=== PATIENT | female | born 1995 | race Two or more races ===

== ENCOUNTER 2025-02-25 08:15 | Inpatient (IN) | payer OTHER ==
[~2025-02-25] VITALS: Ht 182.9 cm; Wt 47.6 kg
[2025-02-25 09:42] LABS: PH,URINE 6.5 (5.0-8.0); URINE APPEARANCE Clear; URINE BILIRRUBIN Negative (NEGATIVE); URINE BLOOD Trace; URINE COLOR Yellow; URINE GLUCOSE Negative (NEGATIVE); URINE KETONE Negative (NEGATIVE); URINE LEUKOCYTE Negative; URINE NITRATE Negative; URINE PROTEIN Negative (NEGATIVE); URINE UROBILINOGEN 0.2 E.U./dl
[2025-02-25 09:44] LABS: URINE BACTERIA 52.6 uL (0.0-1933); URINE EPITHELIAL CELLS 5.8 uL (0.0-38.8); URINE RBC 3.2 uL (0.0-20.8); URINE WBC 4.4 uL (0.0-23.2)
[2025-02-25 09:54] LABS: BASO % 0.4 % (0.1-1.2); EOS # 0.28 (0.04-0.54); EOS % 3.8 % (0.7-7.0); HEMOGLOBIN 11.2 g/dL (11.2-15.7); LYMPH % 27.4 % (19.3-53.1); MONO % 5.5 % (4.7-12.5); NEUT # 4.56 (1.56-6.13); NEUT % 62.5 % (34.0-71.1); PLATELET COUNT 453 K/uL (163-369); RED BLOOD COUNT 4.15 M/uL (3.93-5.22); RED CELL DISTRIBUTION WIDTH 12.7 % (11.6-14.4)
[2025-02-25 10:13] LABS: INR 1.04; PARTIAL THROMBOPLASTIN TIME 26.9 SECONDS (22.0-34.0); PROTHROMBIN TIME 11.3 SECONDS (9.0-11.5)
[2025-02-25 11:28] LABS: ALBUMIN 3.4 gm/dL (3.4-5.0); BILIRUBIN TOTAL 0.37 mg/dL (0.3-1.2); CALCIUM 9.4 mg/dL (8.5-10.1); CREATININE SERUM 0.71 mg/dL (0.55-1.02); GFR 98.02; GLOBULINA 3.7 G/DL (2.4-3.5); POTASSIUM 5.11 mEq/L (3.5-5.1); TOTAL PROTEIN 7.1 gm/dL (6.4-8.2)
[2025-03-03] MEDS ORDERED: CEFAZOLIN SODIUM 1,000 MG VIAL ONE ×2 (08:19→18:22)
[2025-03-03] MEDS ORDERED: ENOXAPARIN SODIUM 40 MG/0.4 ML SYRINGE SUBCUTANEO SCH (15:39)
[2025-03-03] MEDS ORDERED: PROPOFOL 10,000 MCG/ML VIAL IV ONE (16:55)
[2025-03-03] MEDS ORDERED: MORPHINE SULFATE 4 MG/ML CARTRIDGE IV SCH (17:00)
[2025-03-03] MEDS ORDERED: PROPOFOL 10,000 MCG/ML VIAL IV SCH (17:00)
[2025-03-03] MEDS ORDERED: PIPERACILLIN/TAZOBACTAM SODIUM 4.5 GM VIAL IV SCH (18:00)
[2025-03-03] MEDS ORDERED: CEFAZOLIN SODIUM 1,000 MG VIAL IV SCH (18:00)
[2025-03-03 18:31] LABS: BASO % 0.1 % (0.1-1.2); EOS # 0.02 (0.04-0.54); EOS % 0.1 % (0.7-7.0); HEMATOCRIT 36.5 % (34.1-44.9); HEMOGLOBIN 11.8 g/dL (11.2-15.7); LYMPH # 0.76 (1.18-3.74); LYMPH % 4.4 % (19.3-53.1); MEAN CORPUSCULAR HEMOGLOBIN 27.1 pg (25.6-32.2); MONO # 0.48 (0.24-0.82); MONO % 2.8 % (4.7-12.5); NEUT # 15.77 (1.56-6.13); NEUT % 92.4 % (34.0-71.1); PLATELET COUNT 412 K/uL (163-369); RED BLOOD COUNT 4.35 M/uL (3.93-5.22); RED CELL DISTRIBUTION WIDTH 12.6 % (11.6-14.4)
[2025-03-03 18:57] LABS: ALBUMIN 3.1 gm/dL (3.4-5.0); BILIRUBIN TOTAL 0.63 mg/dL (0.3-1.2); CALCIUM 8.9 mg/dL (8.5-10.1); CREATININE SERUM 0.84 mg/dL (0.55-1.02); GLOBULINA 3.1 G/DL (2.4-3.5); POTASSIUM 4.63 mEq/L (3.5-5.1); TOTAL PROTEIN 6.2 gm/dL (6.4-8.2)
[2025-03-03 18:58] LABS: GFR 80.7
[2025-03-03] MEDS ORDERED: MORPHINE SULFATE 4 MG/ML VIAL IV ONE (19:05)
[2025-03-03] MEDS ORDERED: ENOXAPARIN SODIUM 40 MG/0.4 ML SYRINGE SUBCUTANEO ONE (20:15)
[2025-03-04] MEDS ORDERED: PIPERACILLIN/TAZOBACTAM SODIUM 3.375 GM VIAL IV ONE (02:42)
[2025-03-04 06:15] LABS: ABG PO2 316.8 mmHg (80-100); ABG pCO2 34.2 mmHg (35-45); BASE EXCESS 1.9 mmol/l; BICARBONATE 24.9 mmol/l (23-25); SaO2 99.9 %; Tco2 25.9 mmol/l; allen test SATISFACTORY; mode MECHANI VENTILATOR; o2 100 %; puncture site RADIAL RIGHT
[2025-03-04] MEDS ORDERED: PROPOFOL 10,000 MCG/ML VIAL IV ONE ×3 (12:57→23:07)
[2025-03-04] MEDS ORDERED: SODIUM CHLORIDE FOR INHALATION 1 VIAL.NEB IH SCH (18:34)
[2025-03-04] MEDS ORDERED: IPRATROPIUM BROMIDE 0.5 MG/2.5 ML AMPUL.NEB IH SCH (21:00)
[2025-03-05] VITALS (8 sets, daily range): BP systolic 100–129; BP diastolic 59–92; O2SAT 100
[2025-03-05] MEDS ORDERED: LEVALBUTEROL HCL 1.25 MG/3 ML SOLUTION IH SCH (01:00)
[2025-03-05 06:20] LABS: BASO % 0.6 % (0.1-1.2); EOS # 0.23 (0.04-0.54); EOS % 2.2 % (0.7-7.0); HEMATOCRIT 30.3 % (34.1-44.9); HEMOGLOBIN 9.7 g/dL (11.2-15.7); LYMPH # 1.74 (1.18-3.74); LYMPH % 16.7 % (19.3-53.1); MEAN CORPUSCULAR HEMOGLOBIN 26.6 pg (25.6-32.2); MONO # 0.58 (0.24-0.82); MONO % 5.6 % (4.7-12.5); NEUT # 7.79 (1.56-6.13); NEUT % 74.6 % (34.0-71.1); PLATELET COUNT 346 K/uL (163-369); RED BLOOD COUNT 3.65 M/uL (3.93-5.22); RED CELL DISTRIBUTION WIDTH 13.1 % (11.6-14.4)
[2025-03-05 06:41] LABS: ALBUMIN 2.7 gm/dL (3.4-5.0); BILIRUBIN TOTAL 0.54 mg/dL (0.3-1.2); CREATININE SERUM 0.99 mg/dL (0.55-1.02); GFR 66.79; GLOBULINA 2.9 G/DL (2.4-3.5); POTASSIUM 3.78 mEq/L (3.5-5.1); TOTAL PROTEIN 5.6 gm/dL (6.4-8.2)
[2025-03-05 06:53] LABS: ABG PH 7.477 (7.35-7.45); ABG PO2 187.7 mmHg (80-100); ABG pCO2 30.2 mmHg (35-45); BASE EXCESS -0.6 mmol/l; BICARBONATE 21.8 mmol/l (23-25); SaO2 99.7 %; Tco2 22.7 mmol/l
[2025-03-05 06:55] LABS: allen test NO SATISFACTORY; mode MECHANI VENTILATOR; puncture site RADIAL RIGHT
[2025-03-05 06:56] LABS: o2 40 %
[2025-03-05] MEDS ORDERED: ONDANSETRON HCL 2 MG/ML VIAL IV PRN (11:00)
[2025-03-05 11:51] LABS: ABG PH 7.484 (7.35-7.45); ABG PO2 197.5 mmHg (80-100); BASE EXCESS -0.8 mmol/l; BICARBONATE 21.3 mmol/l (23-25); SaO2 99.7 %; Tco2 22.2 mmol/l
[2025-03-05 12:46] LABS: allen test SATISFACTORY; mode MECHANI VENTILATOR; puncture site RADIAL RIGHT
[2025-03-05 12:47] LABS: o2 40 %
[2025-03-06] MEDS ORDERED: KETOROLAC TROMETHAMINE 30 MG VIAL IV PRN (02:45)
[2025-03-06 04:00] VITALS: BP 118/72; O2SAT 100
[2025-03-06 07:11] VITALS: BP 100/56; O2SAT 100
[2025-03-06 12:00] VITALS: BP 116/73; O2SAT 100
[2025-03-06 16:02] VITALS: BP 104/62; O2SAT 100
[2025-03-06] MEDS ORDERED: FAMOTIDINE/PF 20 MG/2 ML VIAL IV SCH (21:00)
[2025-03-06 21:24] VITALS: BP 120/66; O2SAT 100
[2025-03-06 23:11] VITALS: BP 106/61; O2SAT 99
[2025-03-07] MEDS ORDERED: GUAIFENESIN/DEXTROMETHORPHAN 100MG/10ML BLIST.PACK PO ONE (03:15)
[2025-03-07] MEDS ORDERED: GUAIFENESIN 200 MG/10 ML BLIST.PACK PO ONE (03:15)
[2025-03-07 04:00] VITALS: BP 102/67; O2SAT 96
[2025-03-07 07:00] VITALS: BP 122/65; O2SAT 99
[2025-03-07] MEDS ORDERED: IPRATROPIUM BROMIDE 0.5 MG/2.5 ML AMPUL.NEB IH SCH (09:00)
[2025-03-07] MEDS ORDERED: GUAIFENESIN 200 MG/10 ML BLIST.PACK PO SCH (09:00)
[2025-03-07 12:00] VITALS: BP 119/71; O2SAT 100
[2025-03-07 15:36] VITALS: BP 124/63; O2SAT 100
[2025-03-07 17:50] VITALS: BP 121/74; O2SAT 100
== END 2025-03-07 18:15 | disposition home or self-care (01) | DRG 326 ==
LOC: O/R 03-03 06:05 → SURH 03-03 07:00 → ICU 03-05 04:39 → O/R 03-05 04:39 → ICU 03-05 14:36
PROVIDERS: Anesthesiology Pain Medicine; Internal Medicine Critical Care Medicine; ADMIT Surgery; ATTEND Surgery
PROC: 8E0W4CZ Robotic Assisted Procedure of Trunk Region, Percutaneous Endoscopic Approach (ICD-10-PCS; 2025-03-03)
PROC: 0D844ZZ Division of Esophagogastric Junction, Percutaneous Endoscopic Approach (ICD-10-PCS; principal; 2025-03-03 07:00)
PROC: 5A1945Z Respiratory Ventilation, 24-96 Consecutive Hours (ICD-10-PCS; 2025-03-04)
PROC: 3E0F7GC Introduction of Other Therapeutic Substance into Respiratory Tract, Via Natural or Artificial Opening (ICD-10-PCS; 2025-03-04)
PROC: 0BH17EZ Insertion of Endotracheal Airway into Trachea, Via Natural or Artificial Opening (ICD-10-PCS; 2025-03-04)
PROC: 4A033R1 Measurement of Arterial Saturation, Peripheral, Percutaneous Approach (ICD-10-PCS; 2025-03-04)
DX: K22.0 Achalasia of cardia (principal); J69.0 Pneumonitis due to inhalation of food and vomit; J95.821 Acute postprocedural respiratory failure; Z99.11 Dependence on respirator [ventilator] status